=== PATIENT | female | born 1995 | race African-American/Black ===

== ENCOUNTER 2018-01-21 14:54 | Emergency (ER) | payer MEDICAID ==
[~2018-01-21] VITALS: Ht 149.9 cm; Wt 53.0 kg
[2018-01-21] MEDS ORDERED: KETOROLAC 60MG/2ML VIAL IM ONE (15:15)
[2018-01-21] MEDS ORDERED: MORPHINE SULFATE 10 MG/ML CPJ IM ONE (16:30)
[2018-01-21] MEDS ORDERED: ONDANSETRON 4MG ODT PO ONE (16:30)
[2018-01-21 16:50] VITALS: BP 107/75
== END 2018-01-21 18:18 | disposition home or self-care (01) ==
LOC: ER 14:54
DX: S52.592A Other fractures of lower end of left radius, initial encounter for closed fracture (principal); S52.692A Other fracture of lower end of left ulna, initial encounter for closed fracture; V49.49XA Driver injured in collision with other motor vehicles in traffic accident, initial encounter; Y93.89 Activity, other specified; Y92.414 Local residential or business street as the place of occurrence of the external cause; I10 Essential (primary) hypertension
CPT/HCPCS: 29515; 73070; 73090; 73100; 96372; 99283; J1885; J2270; Q0162; A4565